=== PATIENT | male | born 1985 | race Caucasian/White ===

== ENCOUNTER 2016-11-05 09:35 | Emergency (ER) | payer SELFPAY ==
[2016-11-05] MEDS ORDERED: INDOMETHACIN 25 MG CAPSULE PO ONE (10:10)
--- NOTE | 2016-11-05 10:14 | ER PHYSICIAN DOCUMENTATION ---
Physician Documentation [facility] Name:eNno Do Age:30 yrs Sex:Male :1985 Arrival Date:11/05/2016 Time:09:35 Bed1 Private MD: Fuentes Infante Disposition: 11/05/16 09:55 Discharged to Home/Self Care. Impression: Gout. - Condition is Good. - Discharge Instructions: GOUTY ARTHRITIS. - Prescriptions for indomethacin 50 mg Oral capsule - take 1 capsule by ORAL route 3 times per day for 14 days; 42 capsule. allopurinol 100 mg Oral tablet - take 1 tablet by ORAL route 2 times per day; 60 tablet. Prednisone 20 mg Oral Tablet - take 2 tablet by ORAL route once daily for 5 days; 10 tablet. - Medical Reconciliation form form. - Follow up: Private Physician; When: As needed; Reason: Continuance of care. - Problem is new. - Symptoms have improved. HPI: 11/05 10:00 This 30 yrs old Male presents to ER via Private Vehicle with complaints of jm Foot Pain - L. 10:00 The patient presents with pain. The patient has experienced similar episodes in the jm past, and the symptoms today are exactly the same, to when the patient was apparently diagnosed with gout. Pt ran out of allopurinol a few weeks ago and now has a gout flare. He is 100% positive he is dealing w gout. . Historical: - Allergies: No known drug Allergies; - Home Meds: 1. Prednisone Oral 2. allopurinol Oral for pt has been out for three months - PMHx: GOUT; - PSHx: KNEE SURGERY; - Tetanus: < 10 years. - Ebola Screening: : Patient denies exposure to infectious person. Patient denies travel to an Ebola-affected area in the 21 days before illness onset. . - Social history: Smoking status: Patient states was never smoker of tobacco. Patient uses chewing tobaco, Patient/guardian denies using alcohol, marijuana. ROS: 10:00 MS/extremity: Positive for erythema, pain, warmth, of the left foot. jm 10:00 Constitutional: Negative for fever. Exam: 10:00 Constitutional: The patient appears alert, awake, obese. 10:00 Musculoskeletal/extremity: Extremities: grossly normal except: noted in the dorsum of left foot: erythema, pain, tenderness, Pulses: are normal with no appreciated deficits, Sensation intact. 10:00 Psych: Behavior/mood is pleasant, cooperative, Affect is calm. Vital Signs: 09:49 BP 138 / 78; Pulse 85; Resp 18; Temp 98.7; Pulse Ox 92% on R/A; Pain 10/10; st MDM: 09:49 Patient medically screened. madi 13:21 Differential diagnosis: gout. Data reviewed: vital signs, nurses notes, and as a jm result, I will discharge patient. Counseling: I had a detailed discussion with the patient and/or guardian regarding: the historical points, exam findings, and any diagnostic results supporting the discharge/admit diagnosis, the need for outpatient follow up, with the patient's primary care provider. Dispensed Medications: 10:00 Drug: Indomethacin Sustained Release Capsule 75 mg; Route: PO; st 10:13 Follow up: Response: Medication administered at discharge. st 10:00 Drug: predniSONE 40 mg; Route: PO; st 10:13 Follow up: Response: Medication administered at discharge. st Signatures: Cheyenne Thakkar RN RN Fuentes Antonio MD MD jm
--- NOTE | 2016-11-05 10:14 | ER NURSING DOCUMENTATION ---
Nurse's Notes [facility] Name:Neno Do Age:30 yrs Sex:Male :1985 Arrival Date:11/05/2016 Time:09:35 Bed1 Private MD: Diagnosis:Gout Presentation: 11/05 09:45 Presenting complaint: Patient states: pt has a hx of gout he ran out of his allopurinol st 3 months ago and now has a gout attack in the left pinking. the attack started yesterday and got bad today. Transition of care: Home. Care prior to arrival: None. 09:45 Acuity: ASHLEIGH 4 st 09:45 Method Of Arrival: Private Vehicle st Triage Assessment: 09:48 General: Appears uncomfortable, Behavior is cooperative. Pain: Complains of pain in st left foot Pain currently is 10 out of 10 on a pain scale. Pain began 1 day ago. Musculoskeletal: Swelling present in left foot left pinky toe is red. Historical: - Allergies: No known drug Allergies; - Home Meds: 1. Prednisone Oral 2. allopurinol Oral for pt has been out for three months - PMHx: GOUT; - PSHx: KNEE SURGERY; - Tetanus: < 10 years. - Ebola Screening: : Patient denies exposure to infectious person. Patient denies travel to an Ebola-affected area in the 21 days before illness onset. . - Social history: Smoking status: Patient states was never smoker of tobacco. Patient uses chewing tobaco, Patient/guardian denies using alcohol, marijuana. Screenin:50 Infectious Disease Risk None. Abuse screen: Denies threats or abuse. Denies injuries st from another. pt feels safe at home. Nutritional screening: No deficits noted. Vital Signs: 09:49 BP 138 / 78; Pulse 85; Resp 18; Temp 98.7; Pulse Ox 92% on R/A; Pain 10/10; st ED Course: 09:37 Patient arrived in ED. ama 09:45 Cheyenne Thakkar RN is Primary Nurse. st 09:[address] 09:49 Fuentes Wharton MD is Attending Physician. 09:50 Valuables Remains with patient Patient has correct armband on for positive st identification. Bed in low position. Administered Medications: 10:00 Drug: Indomethacin Sustained Release Capsule 75 mg; Route: PO; st 10:13 Follow up: Response: Medication administered at discharge. st 10:00 Drug: predniSONE 40 mg; Route: PO; st 10:13 Follow up: Response: Medication administered at discharge. st Outcome: 09:55 Discharge ordered by . madi 10: Discharged to home via wheelchair. st : Condition: stable 10:13 Discharge instructions given to patient, Instructed on discharge instructions, follow up and referral plans. medication usage, Prescriptions given X 3. 10:14 Patient [address] the ED. st Signatures: Cheyenne Thakkar RN RN Fuentes Antonio MD MD jm Averdick, Andrew, Reg Reg ama
== END 2016-11-05 10:14 | disposition home or self-care (01) ==
LOC: ER 09:35
DX: M10.9 Gout, unspecified (principal); M79.672 Pain in left foot; Z79.899 Other long term (current) drug therapy
CPT/HCPCS: 99283; J7512

== ENCOUNTER 2017-01-30 14:25 | Emergency (ER) | payer SELFPAY ==
[2017-01-30 15:46] LABS: HEMATOCRIT 48.3 % (42.0-54.0); HEMOGLOBIN 16.8 g/dL (14.0-18.0); MEAN CELL VOLUME 86.2 fL (80.0-100.0); MEAN CORPUS. HGB CONCENTRATION 34.7 g/dL (32.0-36.0); MEAN CORPUSCULAR HEMOGLOBIN 29.9 pg (29.0-35.0); MEAN PLATELET VOLUME 8.2 fL (7.4-10.4); PLATELET COUNT 334 X 10^3uL (130-440); RED BLOOD COUNT 5.61 X 10^6uL (4.20-6.10); RED CELL DISTRIBUTION WIDTH 12.4 % (11.5-14.5); WHITE BLOOD COUNT 9.3 X 10^3uL (3.9-10.7)
[2017-01-30 15:58] LABS: BLOOD UREA NITROGEN 11 mg/dL (9-20); C-REACTIVE PROTEIN 10.7 mg/L (<10.0); CALCIUM 10.1 mg/dL (8.4-10.2); CHLORIDE 105 mmol/L (98-107); CREATININE 0.9 mg/dL (0.7-1.3); EST GLOMERULAR FILTRATION RATE > 60 mL/min; GLUCOSE 150 mg/dL (70-100); SODIUM 140 mmol/L (137-145)
--- NOTE | 2017-01-30 16:22 | ER NURSING DOCUMENTATION ---
Nurse's Notes [facility] Name:Neno Do Age:31 yrs Sex:Male :1985 Arrival Date:01/30/2017 Time:14:25 Bed1 Private MD: Diagnosis:Gout Presentation: 01/30 14:45 Presenting complaint: Patient states: diagnosis of gout R wrist last Tuesday. Was told cb if not better to get it recheck in 3 days. Transition of care: Home. Notified ED Physician of patient's arrival and CC Dio Guerrero notified. 14:45 Method Of Arrival: Private Vehicle cb 14:45 Acuity: ASHLEIGH 3 cb Triage Assessment: 14:51 General: Appears in no apparent distress, well groomed, Behavior is cooperative. Pain: cb Complains of pain in right wrist Pain currently is 8 out of 10 on a pain scale. EENT: Denies nasal congestion. Neuro: Level of Consciousness is awake, alert, Oriented to person, place, time, event. Respiratory: Airway is patent Trachea midline Respiratory effort is even, unlabored, Respiratory pattern is regular, symmetrical. GI: Reports tolerance of fluids. : Reports urinary frequency since since starting dexamethasone and prediosne. Derm: Skin is pink, warm & dry. Reports pain that is 8 out of 10 on a pain scale. Musculoskeletal: Reports pain in right wrist. Historical: - Allergies: No known drug Allergies; - Home Meds: 1. None 2. Indomethacin Oral (Last dose: 01/29/2017 ) 3. Prednisone Oral (Last dose: 01/28/2017 ) - PMHx: GOUT; - PSHx: scope of l knee; - Tetanus: < 10 years. - Ebola Screening: : Patient negative for fever greater than or equal to 101.5 degrees Fahrenheit, and additional compatible Ebola Virus Disease symptoms. Patient denies exposure to infectious person. Patient denies travel to an Ebola-affected area in the 21 days before illness onset. No symptoms or risks identified at this time. . - Immunization history: Flu Vaccine None. - Social history: Smoking status: Patient states former smoker of tobacco. Screenin:00 Infectious Disease Risk None. Abuse screen: Denies threats or abuse. Denies injuries cb from another. Nutritional screening: On low carb diet. Vital Signs: 14:58 BP 128 / 83; Pulse 95; Resp 20; Temp 97.9; Pulse Ox 92% on R/A; Weight 163.29 kg; cb Height 6 ft. 3 in. (190.50 cm); Pain 8/10; 14:58 Body Mass Index 45.00 (163.29 kg, 190.50 cm) cb ED Course: 14:28 Patient arrived in ED. ma1 14:45 Jing Recinos RN is Primary Nurse. kezia 14:45 Fuentes Wharton MD is Attending Physician. madi 14:47 Triage completed. cb 15:01 Valuables Remains with patient Patient has correct armband on for positive cb identification. Bed in low position. Call light in reach. 16:14 Labs drawn. By Lab Staff Sent per order to lab. cb Administered Medications: No medications were administered Outcome: 16:14 Discharge ordered by . madi 16:18 Discharged to home ambulatory. cb 16:18 Condition: stable 16:18 Discharge Assessment: Patient awake, alert and oriented x 3. No cognitive and/or functional deficits noted. Patient verbalized understanding of disposition instructions. 16:18 Discharge instructions given to patient, Instructed on discharge instructions, follow up and referral plans. Demonstrated understanding of instructions. 16:21 Patient left the ED. cb Signatures: Jing Recinos RN RN Fuentes Waller MD MD jm Addison, Melissa ma1
--- NOTE | 2017-01-30 16:22 | ER PHYSICIAN DOCUMENTATION ---
Physician Documentation [facility] Name:Neno Do Age:31 yrs Sex:Male :1985 Arrival Date:01/30/2017 Time:14:25 Bed1 Private MD: Fuentes Infante Disposition: 01/30/17 16:14 Discharged to Home/Self Care. Impression: Gout. - Condition is Good. - Discharge Instructions: ARTHRITIS Gout - GOUTY ARTHRITIS. - Medical Reconciliation form form. - Follow up: Private Physician; When: As needed; Reason: Continuance of care. - Problem is new. - Symptoms have improved. HPI: 01/30 17:00 This 31 yrs old Male presents to ER via Private Vehicle with complaints of jm Pain All Over - GOUT. 17:00 The patient or guardian reports known gout. Associated signs and symptoms: Pertinent jm positives: fever, chills, malaise, fatiuge. . The patient has not experienced similar symptoms in the past. Pt was dx w gout and placed on prednisone. Pt's wrist is much improved, but now he feels hot, sweaty, w malaise and body aches. He is worried about a more systemic infection, so he came here. . Historical: - Allergies: No known drug Allergies; - Home Meds: 1. None 2. Indomethacin Oral (Last dose: 01/29/2017 ) 3. Prednisone Oral (Last dose: 01/28/2017 ) - PMHx: GOUT; - PSHx: scope of l knee; - Tetanus: < 10 years. - Ebola Screening: : Patient negative for fever greater than or equal to 101.5 degrees Fahrenheit, and additional compatible Ebola Virus Disease symptoms. Patient denies exposure to infectious person. Patient denies travel to an Ebola-affected area in the 21 days before illness onset. No symptoms or risks identified at this time. . - Immunization history: Flu Vaccine None. - Social history: Smoking status: Patient states former smoker of tobacco. ROS: 17:00 Constitutional: Positive for chills, fatigue, fever, malaise. jm 17:00 MS/extremity: Positive for tenderness. 17:00 Skin: Positive for swelling, Negative for cellulitis, erythema. Exam: 17:00 Constitutional: The patient appears alert, awake. jm 17:00 ENT: Mouth: is normal, Posterior pharynx: is normal. 17:00 Cardiovascular: Rate: normal, Rhythm: regular. 17:00 Respiratory: the patient does not display signs of respiratory distress, Respirations: normal. 17:00 Musculoskeletal/extremity: Extremities: grossly normal except: noted in the right wrist: There is no evidence of erythema, pain, swelling, tenderness, ROM: full active range of motion, full passive range of motion, Pulses: are normal with no appreciated deficits. 17:00 Skin: cellulitis, is not appreciated, no rash present. Vital Signs: 14:58 BP 128 / 83; Pulse 95; Resp 20; Temp 97.9; Pulse Ox 92% on R/A; Weight 163.29 kg; cb Height 6 ft. 3 in. (190.50 cm); Pain 8/10; 14:58 Body Mass Index 45.00 (163.29 kg, 190.50 cm) cb MDM: 14:45 Patient medically screened. 17:00 Differential diagnosis: gout, sepsis, viral syndrome. Data reviewed: vital signs, nurses notes, lab test result(s), and as a result, I will discharge patient. Counseling: I had a detailed discussion with the patient and/or guardian regarding: the historical points, exam findings, and any diagnostic results supporting the discharge/admit diagnosis, lab results, the need for outpatient follow up, with the patient's primary care provider. ED course: Labs and VS, show no signs of systemic infection. DC home. . 01/30 15:55 Order name: CBC WITHOUT A DIFFERENTIAL; Complete Time: 16:12 EDMS 01/30 15:59 Order name: BASIC METABOLIC PANEL; Complete Time: 16:12 EDMS 01/30 15:59 Order name: C-REACTIVE PROTEIN; Complete Time: 16:12 EDMS 01/31 08:01 Order name: BLOOD CULTURE EDMS Dispensed Medications: No medications were administered Signatures: Jing Recinos RN RN cb Meyer, John, MD MD jm
[2017-01-31] MEDS ORDERED: NORMAL SALINE 1,000 ML IV ONE (09:41)
[2017-01-31] MEDS ORDERED: CLINDAMYCIN/D5W 600 MG/50 ML 600 MG IV ONE (09:41)
== END 2017-01-30 16:22 | disposition home or self-care (01) ==
LOC: ER 14:25
DX: M10.9 Gout, unspecified (principal); R50.9 Fever, unspecified; R53.83 Other fatigue; R53.81 Other malaise
CPT/HCPCS: 80048; 85027; 86140; 87040; 99283; J7030

== ENCOUNTER 2017-01-31 08:32 | Emergency (ER) | payer SELFPAY ==
[2017-01-31 09:50] LABS: BASOPHILS 0.4 % (0.0-2.0); EOSINOPHILS 0.8 % (0.0-6.0); EOSINOPHILS# 0.1 X 10^3uL (0.0-0.4); HEMATOCRIT 47.3 % (42.0-54.0); HEMOGLOBIN 16.2 g/dL (14.0-18.0); LYMPHOCYTES 28.6 % (20.0-40.0); LYMPHOCYTES# 2.8 X 10^3uL (0.8-3.8); MEAN CELL VOLUME 85.9 fL (80.0-100.0); MEAN CORPUS. HGB CONCENTRATION 34.2 g/dL (32.0-36.0); MEAN CORPUSCULAR HEMOGLOBIN 29.4 pg (29.0-35.0); MEAN PLATELET VOLUME 8.4 fL (7.4-10.4); MONOCYTES 5.5 % (2.0-10.0); MONOCYTES# 0.5 X 10^3uL (0.2-1.0); NEUTROPHILS 64.7 % (54.0-75.0); NEUTROPHILS# 6.4 X 10^3uL (2.6-6.7); PLATELET COUNT 334 X 10^3uL (130-440); RED BLOOD COUNT 5.51 X 10^6uL (4.20-6.10); RED CELL DISTRIBUTION WIDTH 12.7 % (11.5-14.5); WHITE BLOOD COUNT 9.8 X 10^3uL (3.9-10.7)
[2017-01-31 09:54] LABS: BLOOD UREA NITROGEN 11 mg/dL (9-20); C-REACTIVE PROTEIN 9.8 mg/L (<10.0); CALCIUM 9.8 mg/dL (8.4-10.2); CHLORIDE 105 mmol/L (98-107); CREATININE 0.9 mg/dL (0.7-1.3); EST GLOMERULAR FILTRATION RATE > 60 mL/min; GLUCOSE 89 mg/dL (70-100); POTASSIUM 4.3 mmol/L (3.5-5.1); SODIUM 145 mmol/L (137-145)
--- NOTE | 2017-01-31 10:53 | ER NURSING DOCUMENTATION ---
Nurse's Notes [facility] Name:Neno Do Age:31 yrs Sex:Male :1985 Arrival Date:01/31/2017 Time:08:32 Bed3 Private MD: Diagnosis:Bacteremia Presentation: 01/31 08:38 Presenting complaint: Patient states: Returning due to positive blood cultures. lp Transition of care: Home. 08:38 Acuity: ASHLEIGH 3 lp 08:38 Method Of Arrival: Private Vehicle lp Triage Assessment: 09:19 General: Appears in no apparent distress, Behavior is appropriate for age. Pain: lp Complains of pain in right wrist. EENT: No deficits noted. Neuro: No deficits noted. Cardiovascular: No deficits noted. Respiratory: No deficits noted. GI: No deficits noted. : No deficits noted. Derm: Skin is red, Skin temperature is hot. Historical: - Allergies: No known drug Allergies; - Home Meds: 1. None 2. Indomethacin Oral 3. Prednisone Oral - PMHx: GOUT; Gout (January 30, 2017); - Tetanus: < 10 years. - Ebola Screening: : Patient negative for fever greater than or equal to 101.5 degrees Fahrenheit, and additional compatible Ebola Virus Disease symptoms. Patient denies exposure to infectious person. Patient denies travel to an Ebola-affected area in the 21 days before illness onset. . - Immunization history: Flu Vaccine None. - Social history: Smoking status: Patient states was never smoker of tobacco. Screenin:20 Infectious Disease Risk None. Abuse screen: Denies threats or abuse. Denies injuries lp from another. Nutritional screening: No deficits noted. Assessment: 09:21 Pain: Complains of pain in right wrist. Respiratory: Airway is patent Respiratory lp effort is even, unlabored, Breath sounds are clear bilaterally. Derm: Skin is healthy with good turgor. Vital Signs: 09:18 BP 125 / 92; Pulse 82; Resp 16; Temp 98.7(O); Pulse Ox 93% on R/A; Weight 158.76 kg; lp Height 6 ft. 3 in. (190.50 cm); Pain 5/10; 10:51 BP 120 / 82; Pulse 71; Resp 16; Pulse Ox 94% on R/A; lp 09:18 Body Mass Index 43.75 (158.76 kg, 190.50 cm) lp ED Course: 08:33 Patient arrived in ED. cj 08:38 Zoe Cervantes, PASCUAL is Primary Nurse. lp 08:39 Triage completed. lp 08:40 Fuentes Wharton MD is Attending Physician. madi 08:[address] Wharton notified. lp 09:18 Inserted peripheral IV: 20 gauge in left antecubital area and blood collected. lp 09:21 Valuables Remains with patient Patient has correct armband on for positive lp identification. Placed in gown. Bed in low position. Call light in reach. 10:40 Dayo Ying MD is Referral Physician. madi Administered Medications: 09:33 Drug: NS 0.9% 1000 ml; Route: IV; Rate: bolus; Site: left antecubital; lp 10:51 Follow up: IV Status: Completed infusion; IV Intake: 1000ml lp 09:33 Drug: Clindamycin 600 mg; Route: IVPB; Site: left antecubital; lp 10:03 Follow up: Response: No adverse reaction; No change in condition; IV Status: Completed lp infusion; IV Intake: 50ml Intake: 10:03 IV: 50ml; Total: 50ml. lp 10:51 IV: 1000ml; Total: 1050ml. lp Outcome: 10:40 Discharge ordered by . madi 10:52 Discharged to home ambulatory. lp 10:52 Condition: stable 10:52 Instructed on discharge instructions, follow up and referral plans. medication usage. 10:52 Patient left the ED. lp 02/01 10:54 Discharge F/U Call: Unable to reach: no answer lp Signatures: Zoe Cervantes RN RN lp Meyer, John, MD MD jm Jones, Carissa
--- NOTE | 2017-01-31 10:53 | ER PHYSICIAN DOCUMENTATION ---
Physician Documentation [facility] Name:Neno Do Age:31 yrs Sex:Male :1985 Arrival Date:01/31/2017 Time:08:32 Bed3 Private MD: Fuentes Infante Disposition: 01/31/17 10:40 Discharged to Home/Self Care. Impression: Bacteremia. - Condition is Good. - Discharge Instructions: BACTEREMIA, Rule Out (Adult). - Prescriptions for Clindamycin HCl 300 mg Oral - take 1 capsule by ORAL route every 8 hours for 10 days; 30 capsule. - Medical Reconciliation form form. - Follow up: Dayo Ying MD; When: at 2:45pm; Reason: Recheck today's complaints. - Problem is new. - Symptoms have improved. HPI: 01/31 09:40 This 31 yrs old Male presents to ER via Private Vehicle with complaints of jm Fever. 09:40 The patient reports fever, not measured (subjective). Onset: The symptom(s)/episode jm began/occurred 3 day(s) ago. Modifying factors: unaware of sick contact. Associated signs and symptoms: Pertinent positives: myalgias, night sweats. Severity of symptoms: in the emergency department the symptoms are unchanged. The patient has experienced a previous episode. The patient has been recently seen by a physician: yesterday, The patient has been recently seen at the [facility] Emergency Department, yesterday, for similar complaints labs were performed, the patient was told to return for a recheck, because blood cultures grew out strep. . I saw pt yesterday for general illness sx (myalgias, feverish, chills, sweats, and malaise) Pt was worried he was getting septic from a possible wrist infection. He was seen for wrist pain which was thought to be gout. He as not been on his allopurinol and has a hx of gout. He had a hot, swollen, painful, red R wrist. He was placed on prednisone and his wrist improved, but then he started to get ill, which is why he came to see me yesterday. I had normal VS and a normal looking wrist. I did some labs. He has a normal WBC and CRP, but today the blood clx I did came back w G+ cocci in chains, so he was called to come back. He still feels lousy . Historical: - Allergies: No known drug Allergies; - Home Meds: 1. None 2. Indomethacin Oral 3. Prednisone Oral - PMHx: GOUT; Gout (January 30, 2017); - Tetanus: < 10 years. - Ebola Screening: : Patient negative for fever greater than or equal to 101.5 degrees Fahrenheit, and additional compatible Ebola Virus Disease symptoms. Patient denies exposure to infectious person. Patient denies travel to an Ebola-affected area in the 21 days before illness onset. . - Immunization history: Flu Vaccine None. - Social history: Smoking status: Patient states was never smoker of tobacco. ROS: 10:46 Constitutional: Positive for body aches, chills, fatigue, fever, malaise. jm 10:46 ENT: Negative for sinus congestion, sinus pain, sore throat. 10:46 Cardiovascular: Negative for chest pain. 10:46 Respiratory: Negative for cough, shortness of breath. 10:46 Abdomen/GI: Negative for abdominal pain, nausea, vomiting, diarrhea. 10:46 MS/extremity: Positive for pain, Negative for erythema, rash, swelling. Exam: 10:46 Constitutional: The patient appears alert, awake, comfortable, obese. jm 10:46 Cardiovascular: Rate: normal, Rhythm: regular. 10:46 Respiratory: Respirations: normal, Breath sounds: are normal. 10:46 Musculoskeletal/extremity: Exam is negative for erythema, swelling, ROM: limited active range of motion due to pain, limited passive range of motion due to pain, in the right wrist, Pulses: are normal with no appreciated deficits. 10:46 Skin: cellulitis, is not appreciated, no rash present. Vital Signs: 09:18 BP 125 / 92; Pulse 82; Resp 16; Temp 98.7(O); Pulse Ox 93% on R/A; Weight 158.76 kg; lp Height 6 ft. 3 in. (190.50 cm); Pain 5/10; 10:51 BP 120 / 82; Pulse 71; Resp 16; Pulse Ox 94% on R/A; lp 09:18 Body Mass Index 43.75 (158.76 kg, 190.50 cm) lp MDM: 08:40 Patient medically screened. 10:47 Differential diagnosis: viral Infection, bacterial infection. Data reviewed: vital jm signs, nurses notes, old medical records, lab test result(s), and as a result, I will discharge patient. Counseling: I had a detailed discussion with the patient and/or guardian regarding: the historical points, exam findings, and any diagnostic results supporting the discharge/admit diagnosis, the need for outpatient follow up, an assistant football coach, tomorrow for a recheck. . Physician consultation: Dayo Ying MD regarding patient's condition, and will see patient tomorrow. ED course: Again, pt looks good to me w normal VS and normal CBC/CRP. We did another 2 cultures today and gave IV clinda. I have hard time with admission, since he looks so good, and I do feel the culture is a contaminate despite his systemic symptoms that he complains of. Dr. Ying states that he can follow up the pt tomorrow in clinic. It was my decision not to admit for continued IV abx, but I appreciate the close f/u as does the pt. We will keep pt on PO clinda. Pt has appointment tomorrow afternoon. Dr. Ying will f/u the cultures. . 01/31 09:51 Order name: CBC AUTO DIF, MDIF/RMOR IF IND; Complete Time: 09:59 [facility] 01/31 09:55 Order name: BASIC METABOLIC PANEL; Complete Time: 09:59 [facility] 01/31 09:55 Order name: C-REACTIVE PROTEIN; Complete Time: 09:59 [facility] 02/01 09:35 Order name: BLOOD CULTURE [facility] 02/01 09:35 Order name: BLOOD CULTURE [facility] 01/31 08:52 Order name: Iv Saline Lock; Complete Time: 09:22 01/31 08:52 Order name: Pulse Ox Continuous; Complete Time: 09:22 Dispensed Medications: :33 Drug: NS 0.9% 1000 ml; Route: IV; Rate: bolus; Site: left antecubital; lp 10:51 Follow up: IV Status: Completed infusion; IV Intake: 1000ml lp 09:33 Drug: Clindamycin 600 mg; Route: IVPB; Site: left antecubital; lp 10:03 Follow up: Response: No adverse reaction; No change in condition; IV Status: Completed lp infusion; IV Intake: 50ml Signatures: Zoe Cervantes RN RN Fuentes Park MD MD jm
== END 2017-01-31 10:53 | disposition home or self-care (01) ==
LOC: ER 08:32
DX: R78.81 Bacteremia (principal); A49.1 Streptococcal infection, unspecified site; R50.9 Fever, unspecified; R53.83 Other fatigue; R53.81 Other malaise; M79.1 Myalgia; M25.531 Pain in right wrist
CPT/HCPCS: 36415; 80048; 85025; 86140; 87040; 96361; 96365; 99283

== ENCOUNTER 2017-03-22 09:42 | Emergency (ER) | payer SELFPAY ==
--- NOTE | 2017-03-22 10:33 | ER NURSING DOCUMENTATION ---
Nurse's Notes [facility] Name:Neno Do Age:31 yrs Sex:Male :1985 Arrival Date:03/22/2017 Time:09:42 Bed6 Private MD: Diagnosis:Gout Presentation: 03/22 09:45 Acuity: ASHLEIGH 4 09:51 Presenting complaint: Patient states: TREATED FOR GOUT 2 WEEKS AGO. OUT OF MEDS NOW AND lc STILL NOT RESOLVED TO LEFT ANKLE. Transition of care: Home. Notified ED Physician of patient's arrival and CC. 09:51 Method Of Arrival: Private Vehicle Triage Assessment: 09:54 General: Appears uncomfortable, Behavior is cooperative. Pain: Complains of pain in lc left lateral malleolus and left medial malleolus Pain At worst was 8 out of 10 on a pain scale. Quality of pain is described as burning, throbbing, Pain began 2 WEEKS. Musculoskeletal: Circulation, motion, and sensation intact Swelling present in left foot. Historical: - Allergies: No known drug Allergies; - Home Meds: 1. None - PMHx: GOUT; - PSHx: Knee surgery; - Tetanus: < 10 years. - Ebola Screening: : Patient denies travel to an Ebola-affected area in the 21 days before illness onset. No symptoms or risks identified at this time. . - Immunization history: Vaccine Information Sheet provided Flu Vaccine >1 year. - Social history: Smoking status: Patient states was never smoker of tobacco. Patient uses chewing tobacco. Screenin:56 Infectious Disease Risk None. Abuse screen: Denies threats or abuse. Denies injuries lc from another. Nutritional screening: No deficits noted. Assessment: 09:56 See Triage Assessment done by same RN. Vital Signs: 09:55 BP 101 / 73; Pulse 98; Resp 16; Temp 98.2; Pulse Ox 95% on R/A; Weight 163.29 kg; lc Height 6 ft. 3 in. (190.50 cm); Pain 8/10; 09:55 Body Mass Index 45.00 (163.29 kg, 190.50 cm) ED Course: 09:44 Patient arrived in ED. dp 09:45 Triage completed. 09:46 Juan Miguel Pimentel MD is Attending Physician. tl1 09:51 Irene Lujan RN is Primary Nurse. 09:57 Valuables Remains with patient Patient has correct armband on for positive lc identification. Bed in low position. Call light in reach. Elevated left foot. Administered Medications: No medications were administered Outcome: 10:20 Discharge ordered by . tl1 10:31 Discharged to home ambulatory. 10:31 Condition: stable 10:31 Discharge Assessment: Patient awake, alert and oriented x 3. No cognitive and/or functional deficits noted. Patient verbalized understanding of disposition instructions. 10:31 Discharge instructions given to patient, Instructed on discharge instructions, follow up and referral plans. medication usage, no drinking with medication, Demonstrated understanding of instructions, medications, Prescriptions given X 3. 10:32 Patient left the ED. 03/23 10:25 Discharge F/U Call: Spoke with: patient. Signatures: Irene Lujan, Juan Miguel Sultana RN, MD MD tl1 Tata Dill Iesha Castorena
--- NOTE | 2017-03-22 10:33 | ER PHYSICIAN DOCUMENTATION ---
Physician Documentation [facility] Name:Neno Do Age:31 yrs Sex:Male :1985 Arrival Date:03/22/2017 Time:09:42 Bed6 Private MD: Juan Miguel Davis Disposition: 03/22 10:40 Chart complete. tl1 Disposition: 03/22/17 10:20 Discharged to Home/Self Care. Impression: Gout. - Condition is Good. - Discharge Instructions: GOUTY ARTHRITIS. - Prescriptions for indomethacin 50 mg Oral capsule - take 1 capsule by ORAL route 3 times per day for 10 days; 30 capsule. [place] 5- 325 mg Oral - take 1 tablet by ORAL route every 6 hours As needed; 10 tablet. Prednisone 20 mg Oral Tablet - take 2 tablet by ORAL route once daily for 5 days; 10 tablet. - Medical Reconciliation form form. - Follow up: Private Physician; When: 4- 6 days; Reason: Recheck today's complaints, Continuance of care. - Problem is new. - Symptoms have improved. HPI: 09:55 This 31 yrs old Male presents to ER via Private Vehicle with complaints of tl1 Ankle Swelling - LEFT. 03/21 10:20 The patient presents with a history of running out of pain medications, pain, that is tl1 acute. 03/22 09:55 He has a prior h/o gout, which has been more of a problem lately. He estimates about 20 tl1 episodes over the last 6 months, mostly involving the left ankle. for the last 2 weeks he has been taking naproxen, but is now out and today the pain and swelling are worse. He is out of medication.. Historical: - Allergies: No known drug Allergies; - Home Meds: 1. None - PMHx: GOUT; - PSHx: Knee surgery; - Tetanus: < 10 years. - Ebola Screening: : Patient denies travel to an Ebola-affected area in the 21 days before illness onset. No symptoms or risks identified at this time. . - Immunization history: Vaccine Information Sheet provided Flu Vaccine >1 year. - Social history: Smoking status: Patient states was never smoker of tobacco. Patient uses chewing tobacco. ROS: 09:00 MS/extremity: Positive for pain, swelling, warmth. tl1 09:00 All other systems are negative. Exam: 09:00 Constitutional: This is a well developed, well nourished patient who is awake, alert, tl1 and in no acute distress. 09:00 Head/face: Exam is negative for acute changes. 09:00 Cardiovascular: Rate: normal. 09:00 Respiratory: Respirations: normal. 09:00 Musculoskeletal/extremity: Extremities: grossly normal except: noted in the left lateral ankle and left medial ankle: Joints: the left ankle displays effusion, pain at rest, painful range of motion, swelling, tenderness. 09:00 Skin: Exam negative for acute changes. Vital Signs: 09:55 BP 101 / 73; Pulse 98; Resp 16; Temp 98.2; Pulse Ox 95% on R/A; Weight 163.29 kg; lc Height 6 ft. 3 in. (190.50 cm); Pain 8/10; 09:55 Body Mass Index 45.00 (163.29 kg, 190.50 cm) lc MDM: 03/21 10:20 Differential diagnosis: arthritis, gout. Data reviewed: vital signs, nurses notes, and tl1 as a result, I will discharge patient. Counseling: I had a detailed discussion with the patient and/or guardian regarding: the historical points, exam findings, and any diagnostic results supporting the discharge/admit diagnosis, the need for outpatient follow up, to return to the emergency department if symptoms worsen or persist or if there are any questions or concerns that arise at home. 03/22 09:46 Patient medically screened. tl1 Dispensed Medications: No medications were administered Signatures: Irene Lujan RN RN lc Leigh, Tom, MD MD tl1
== END 2017-03-22 10:33 | disposition home or self-care (01) ==
LOC: ER 09:42
DX: M10.9 Gout, unspecified (principal); M25.572 Pain in left ankle and joints of left foot
CPT/HCPCS: 99282